=== PATIENT | female | born 1985 | race Caucasian/White ===

== ENCOUNTER 2016-12-03 00:42 | Emergency (ER) | payer OTHER ==
[~2016-12-03] VITALS: Wt 94.5 kg
[~2016-12-03 00:42] MED LIST: HYDR-906 PO; IBUP800T25 PO; LORA-441 PO
[2016-12-03] MEDS ORDERED: LIDOCAINE/MYLANTA 40 ML BTL PO ONE (04:30)
--- NOTE | 2016-12-03 04:37 | RADRPT ---
PROCEDURE: CHEST - 1 VIEW CLINICAL INDICATION: 31-year-old female with chest pain. TECHNIQUE: A single frontal AP upright portable view of the chest was performed. The images were reviewed on a PACS workstation. COMPARISON: Chest x-ray October 26, 2015. FINDINGS: The cardiomediastinal silhouette has a normal appearance. There is no evidence for an infiltrate. T he pulmonary vascularity is within normal limits. There is no evidence for pneumothorax or pneumomed iastinum. The osseous structures are intact. IMPRESSION: No evidence for active cardiopulmonary disease. .Zeus Tadeo MD, Date Time Electronically viewed and signed by .Zeus Tadeo MD, on 12/03/2016 04:37 .M/
--- NOTE | 2016-12-03 04:43 | ERD ---
ER Documentation Chief Complaint Date/Time DATE: 12/03/16 TIME: 04:42 Chief Complaint cp, sob for 3 days HPI 31-year-old female presents to emergency department for complaints of chest pain started 3 days ago, patient states that it started like a heartburn, burning pain, 4/10 scale, radiating the chest area she's been having it on and off for the last 3 days. Patient states whenever it happens she gets short of breath. Patient denies any dizziness. Patient continues to have the pain at this time, took [id number] acid reflux medication with only mild relief. Patient denies any flank pain. Patient denies any nausea or vomiting. ROS All systems reviewed and are negative except as per history of present illness. Medications Home Meds Active Scripts Omeprazole* (Omeprazole*) 20 Mg Capsule.dr, 20 MG PO DAILY, #30 Prov:PIYUSH BOWDEN NP 12/03/16 Magaldrate/Simethicone* (Mylanta*) 355 Ml Susp, 30 ML PO QID Y for GASTROINTESTINAL UPSET, #1 BOTTLE Prov:PIYUSH BOWDEN NP 12/03/16 Ibuprofen* (Motrin*) 800 Mg Tab, 800 MG PO Q6, #20 TAB Prov:DIMAS PLUMMER NP 07/23/16 Hydrocodone/Acetaminophen (Torreon 5-325 Tablet) 1 Each Tablet, 1 TAB PO Q6H Y for PAIN, #7 TAB Prov:DIMAS PLUMMER NP 07/23/16 Reported Medications Lorazepam* (Ativan*) 0.5 Mg Tablet, 0.5 MG PO Q8 for ANXIETY, TAB 12/29/14 Allergies Allergies: Coded Allergies: adhesive tape (Verified Allergy, Unknown, RASH, 12/29/14) Uncoded Allergies: PLASTIC TAPE (Allergy, Intermediate, RASH, 10/26/15) RASH/REDNESS OF THE SKIN. PMhx/Soc Medical and Surgical Hx: pt denies Medical Hx History of Surgery: Yes (ankle fracture repair) Anesthesia Reaction: No Hx Neurological Disorder: No Hx Respiratory Disorders: No Hx Cardiac Disorders: No Hx Psychiatric Problems: No Hx Miscellaneous Medical Probl: No Hx Alcohol Use: No Hx Substance Use: No Hx Tobacco Use: No Smoking Status: Never smoker FmHx Family History: No coronary disease, No diabetes, No other Physical Exam Vitals Vital Signs Date Time Temp Pulse Resp B/P Pulse Ox O2 Delivery O2 Flow Rate FiO2 12/03/16 06:17 98.3 88 18 127/86 100 Room Air 12/03/16 00:48 99.1 95 20 131/82 99 Physical Exam GENERAL: The patient is well developed and appropriate for usual state of health, in no apparent distress. CHEST: Clear to auscultation bilaterally. There are no rales, wheezes or rhonchi. HEART: Regular rate and rhythm. No murmurs, clicks, rubs or gallops. No S3 or S4. ABDOMEN: Soft, nontender and nondistended. Good bowel sounds. No rebound or guarding. No gross peritonitis. No gross organomegaly or masses. No Calabrese sign or McBurney point tenderness. BACK: No midline or flank tenderness. EXTREMITIES: Equal pulses bilaterally. There is no peripheral clubbing, cyanosis or edema. No focal swelling or erythema. Full range of motion. Grossly neurovascularly intact. NEURO: Alert and oriented. Cranial nerves 2-12 intact. Motor strength in all 4 extremities with 5/5 strength. Sensation grossly intact. Normal speech and gait. SKIN: There is no apparent rash or petechia. The skin is warm and dry. HEMATOLOGIC AND LYMPHATIC: There is no evidence of excessive bruising or lymphedema. No gross cervical, axillary, or inguinal lymphadenopathy. Result Diagram: 12/03/16 0452 12/03/16 0411 Results 24 hrs Laboratory Tests Test 12/03/16 04:11 12/03/16 04:52 Alanine Aminotransferase (ALT/SGPT) 35IU/L Albumin 3.9g/dl Albumin/Globulin Ratio 1.14 Alkaline Phosphatase 95IU/L Anion Gap 18 Aspartate Amino Transf (AST/SGOT) 20IU/L Blood Urea Nitrogen 12mg/dl Calcium Level 8.4mg/dl Carbon Dioxide Level 26mmol/L Chloride Level 104mmol/L Creatinine 0.56mg/dl Direct Bilirubin 0.00mg/dl Globulin 3.40g/dl Glucose Level 133mg/dl Indirect Bilirubin 0.1mg/dl Lipase 84U/L Potassium Level 3.8mmol/L Sodium Level 144mmol/L Total Bilirubin 0.1mg/dl Total Protein 7.3g/dl Troponin I < 0.012ng/ml Basophils # 0.010^3/ul Basophils % 0.3% Eosinophils # 0.110^3/ul Eosinophils % 1.1% Hematocrit 38.8% Hemoglobin 12.4g/dl Lymphocytes # 3.910^3/ul Lymphocytes % 33.4% Mean Corpuscular Hemoglobin 25.9pg Mean Corpuscular Hemoglobin Concent 32.0g/dl Mean Corpuscular Volume 81.2fl Mean Platelet Volume 9.2fl Monocytes # 0.510^3/ul Monocytes % 4.4% Neutrophils # 7.110^3/ul Neutrophils % 60.6% Nucleated Red Blood Cells # 0.010^3/ul Nucleated Red Blood Cells % 0.0/100WBC Platelet Count 07812^3/UL Red Blood Count 4.7810^6/ul Red Cell Distribution Width 13.1% White Blood Count 11.710^3/ul Current Medications Medications (Trade) Dose Ordered Sig/Davina Route PRN Reason Start Time Stop Time Status Last Admin Dose Admin Miscellaneous Medication (Gi Cocktail (2)) 40 ml ONCE ONCE PO 12/03/16 04:30 12/03/16 04:31 DC 12/03/16 04:53 Cocktail was given here in emergency department, after treatment, patient verbalizing much better. EKG was done, read by me and is normal sinus rhythm at a rate of _94 normal axis , there is no ST changes or changes in the EKG that indicates any cardiac emergencies at this time. Patient's EKG was also reviewed by Dr. Hernandez. Impression: no acute findings on EKG Procedures/MDM Medical Decision Making: Patient symptoms of chest pain and shortness of breath most likely consistent with acid reflux disease, possible heartburn. Nonspecific at this time. There is low suspicion for cardiopulmonary emergencies at this time. Patient has low risk factors. EKG is normal, there is no changes in the EKG that indicates cardiac emergencies. Chest X-ray does not show cardiopulmonary emergencies at this time. There is low suspicion for aortic aneurysm, myocardial infarction, pneumothorax, pleural effusion, pulmonary embolism, or any other cardiopulmonary emergencies at this time. Cardiac markers are normal. Patient was given for Mylanta, omeprazole, was advised to follow up with primary care doctor in 2-3 days for reevaluation of symptoms. Patient was advised to return to emergency department for any worsening symptoms. Departure Diagnosis: Primary Impression: Atypical chest pain Additional Impression: GERD (gastroesophageal reflux disease) Esophagitis presence: without esophagitis Qualified Code: K21.9 - Gastroesophageal reflux disease without esophagitis Condition: Stable Patient Instructions: Chest Pain, Uncertain Cause, Gastroesophageal Reflux Disease (GERD) Additional Instructions: Patient was given for Mylanta, omeprazole, was advised to follow up with primary care doctor in 2-3 days for reevaluation of symptoms. Patient was advised to return to emergency department for any worsening symptoms. PIYUSH BOWDEN NP Dec 03, 2016 04:43
[2016-12-03 05:00] LABS: ADD SCAN DIFF NO
[2016-12-03 05:06] LABS: BASOPHILS % 0.3 % (0.0-2.0); EOSINOPHILS # 0.1 10^3/ul (0.0-0.5); EOSINOPHILS % 1.1 % (0.0-7.0); HEMATOCRIT 38.8 % (37.0-47.0); HEMOGLOBIN 12.4 g/dl (12.0-16.0); LYMPHOCYTES # 3.9 10^3/ul (0.8-2.9); LYMPHOCYTES % 33.4 % (15.0-51.0); MEAN CORPUSCULAR HEMOGLOBIN 25.9 pg (29.0-33.0); MEAN CORPUSCULAR VOLUME 81.2 fl (82.0-101.0); MEAN PLATELET VOLUME 9.2 fl (7.4-10.4); MONOCYTE # 0.5 10^3/ul (0.3-0.9); MONOCYTES % 4.4 % (0.0-11.0); NEUTROPHIL # 7.1 10^3/ul (1.6-7.5); NEUTROPHILS % 60.6 % (39.0-77.0); PLATELET COUNT 342 10^3/UL (140-415); RED BLOOD COUNT 4.78 10^6/ul (4.20-5.40); RED CELL DISTRIBUTION WIDTH 13.1 % (11.5-14.5); WHITE BLOOD COUNT 11.7 10^3/ul (4.8-10.8)
[2016-12-03 05:28] LABS: ALBUMIN 3.9 g/dl (3.3-4.9)
[2016-12-03 05:29] LABS: CHLORIDE 104 mmol/L (97-110); POTASSIUM 3.8 mmol/L (3.5-5.1); SODIUM 144 mmol/L (135-144)
[2016-12-03 05:31] LABS: ANION GAP 18 (8-16); ASPARTATE AMINO TRANSFERASE 20 IU/L (15-46); BILIRUBIN,INDIRECT 0.1 mg/dl (0-1.1); BILIRUBIN,TOTAL 0.1 mg/dl (0.2-1.3); CARBON DIOXIDE 26 mmol/L (21-31); CREATININE 0.56 mg/dl (0.44-1.00)
[2016-12-03 05:32] LABS: ALANINE AMINOTRANSFERASE 35 IU/L (13-69); ALBUMIN/GLOBULIN RATIO 1.14; ALKALINE PHOSPHATASE 95 IU/L (42-121); BLOOD UREA NITROGEN 12 mg/dl (7-20); CALCIUM 8.4 mg/dl (8.4-10.2); GLUCOSE 133 mg/dl (70-220); TOTAL PROTEIN 7.3 g/dl (6.1-8.1)
[2016-12-03 05:49] LABS: TROPONIN-I < 0.012 ng/ml (0.00-0.12)
[2016-12-03] MEDS ORDERED: MAG-19 PO (05:49)
[2016-12-03] MEDS ORDERED: OMEP20CA16 PO (05:49)
[2016-12-03 06:17] VITALS: BP 127/86; PULSE 88; RESP 18; TEMP 98.3
== END 2016-12-03 06:18 | disposition home or self-care (01) ==
LOC: FTE 00:42
DX: R07.89 Other chest pain (principal); K21.9 Gastro-esophageal reflux disease without esophagitis
CPT/HCPCS: 36415; 71010; 80053; 83690; 84484; 85025; 93005; Z7502; Z7610

== ENCOUNTER 2019-02-26 22:45 | Emergency (ER) | payer OTHER ==
[~2019-02-26] VITALS: Ht 157.5 cm; Wt 103.0 kg
[~2019-02-26 22:45] MED LIST changes: -HYDR-906 PO; -IBUP800T25 PO; -LORA-441 PO; +PNV11TAB PO
[2019-02-26 22:47] VITALS: BP 145/66; PULSE 85; RESP 18; Ht 157.5 cm; Wt 103.0 kg
--- NOTE | 2019-02-26 22:59 | ERD ---
ER Documentation Chief Complaint Chief Complaint LEFT HAND NUMBNESS [id number], NO WEAKNESS, FEEL STIFF; NO KNOWN INJ HPI This is a 33-year-old female presents here in the emergency department with complaints of left hand numbness and pain for about a week. Stated that she is right-handed. Stated that she has been using her hands at home. She does not work at this time but taking care of her 2 babies. LMP: Last month. G1, P2 (twins), A0. Denies headache, head injury, loss of consciousness, dizziness, neck pain, neck stiffness, throat pain, difficulty swallowing, difficulty breathing lying flat, shoulder pain, chest pain, back pain, abdominal pain, nausea, vomiting, constipation, diarrhea, urinary symptoms, or possibility being , loss of bowel and bladder control, trauma, injury, falls, difficulty walking due to pain, numbness or tingling sensation, calf pain, recent travel, recent major surgery in the last 3 weeks, calf pain, recent long travel, recent exposure to any illness, recent antibiotic use in the last 3 months, fever, chills, seizures. Past medical history: Surgical history: Social: Denies smoking, use of alcoholic beverages, use of illegal drugs. ROS All systems reviewed and are negative except as per history of present illness. Medications Home Meds Active Scripts Tramadol HCl (Tramadol HCl) 50 Mg Tablet, 50 MG PO Q6 PRN for SEVERE PAIN LEVEL 7-10, #5 TAB Prov:MAULIK SIDHU Trevon 02/26/19 Ibuprofen* (Motrin*) 800 Mg Tab, 800 MG PO Q6H PRN for PAIN AND OR ELEVATED TEMP , #30 TAB Prov:CARYNMAGNUSMAULIK 02/26/19 Reported Medications [id number] ( 19) 1 Each Tablet, 1 TAB PO DAILY, TAB 07/17/17 Allergies Allergies: Coded Allergies: adhesive tape (Unverified Allergy, Unknown, RASH, 07/17/17) Uncoded Allergies: PLASTIC TAPE (Allergy, Intermediate, RASH, 10/26/15) RASH/REDNESS OF THE SKIN. PMhx/Soc History of Surgery: Yes (ankle fracture repair) Anesthesia Reaction: No Hx Neurological Disorder: No Hx Respiratory Disorders: No Hx Cardiac Disorders: No Hx Psychiatric Problems: No Hx Miscellaneous Medical Probl: No Hx Alcohol Use: No Hx Substance Use: No Hx Tobacco Use: No Physical Exam Vitals Vital Signs Date Temp Pulse Resp B/P (MAP) Pulse Ox O2 O2 Flow FiO2 Time Delivery Rate 02/26/19 99.4 85 18 145/66 99 22:47 (92) Physical Exam Const: No acute distress Head: Atraumatic Eyes: Normal Conjunctiva ENT: Normal External Ears, Nose and Mouth. Neck: Full range of motion. No meningismus. C-spine: Midline with good and full range of motion and is no tenderness/swelling/bulging/discoloration. Resp: Clear to auscultation bilaterally Cardio: Regular rate and rhythm, no murmurs Abd: Soft, non tender, non distended. Normal bowel sounds Skin: No petechiae or rashes Back: No midline or flank tenderness Ext: No cyanosis, or edema. Left hand: Positive Tinel sign. Positive Phalen's test. Left radial pulses within normal limits. Left hand has no deformity/swelling. Left hand is good cooperative education coordinator. No deformities to left wrist. Left elbow is unremarkable. Left shoulder is unremarkable. Right upper extremity is unremarkable. Capillary refills to bilateral upper extremities are less than 2 seconds. Neur: Awake and alert. No facial droop. Follows commands. Speaks full and clear sentences. Equal cooperative education coordinator. Equal strength in bilateral upper and lower extremities. Able to bear weight left lower extremity. Able to bear weight on right lower extremity. Sensation is intact. Romberg test is negative. No neurological deficits. Psych: Normal Mood and Affect Results 24 hrs Laboratory Tests Test 02/26/19 23:15 POC Beta HCG, Qualitative NEGATIVE Current Medications Medications Dose Sig/Davina Start Time Status Last (Trade) Ordered Route PRN Stop Time Admin Dose Reason Admin Ketorolac 30 mg ONCE STAT 02/26/19 DC 02/26/19 Tromethamine IM 23:02 23:20 (Toradol) 02/26/19 23:04 Procedures/MDM Diagnostic tests: POC urine : Negative. Treatment: Toradol IM. Velcro splint. Re-evaluation: No neurovascular deficits prior to and after the application of Velcro splint. Capillary refills to bilateral upper extremity are less than 2 seconds. Romberg test negative. No neurological deficits. Ambulatory with steady gait. Stated that she feels much better at this time and that she is comfortable going home. Differential diagnosis I have low suspicion for stroke, acute microinfarction, compartment syndrome, fractures. Final diagnosis: Carpal tunnel syndrome. Prescription: Motrin. Tramadol for severe pain. Follow-up with PCP in the next 24-48 hours. Follow-up with hand specialist in the next 24 to 48 hours. Follow-up with neurologist in the next 24 to 48 hours. Come back here in the emergency department for any new symptoms or any worsening symptoms. All questions and concerns were answered. Patient and family members verbalized understanding and agreed with plan of care. Hemodynamically stable on discharge. Departure Diagnosis: Primary Impression: Carpal tunnel syndrome of left wrist Condition: Stable Additional Instructions: Follow-up with PCP in the next 24-48 hours. Follow-up with hand specialist in the next 24 to 48 hours. Follow-up with neurologist in the next 24 to 48 hours. Come back here in the emergency department for any new symptoms or any worsening symptoms. MAULIK SIDHU Feb 26, 2019 22:59
[2019-02-26] MEDS ORDERED: KETOROLAC 30 MG INJ IM STA (23:02)
[2019-02-26] MEDS ORDERED: IBUP800T48 PO (23:12)
[2019-02-26] MEDS ORDERED: TRAM50TA2 PO (23:33)
== END 2019-02-26 23:36 | disposition home or self-care (01) ==
LOC: FTE 22:45
DX: G56.02 Carpal tunnel syndrome, left upper limb (principal)
CPT/HCPCS: 29125; 81025; 96372; J1885; Z7502